=== PATIENT | female | born 1950 | race Caucasian/White ===

== ENCOUNTER 2020-10-11 17:12 | Emergency (ER) | payer MEDICARE, OTHER ==
[2020-10-11 19:10] LABS: BASOPHIL 0.6 % (0-2); EOSINOPHIL 1.4 % (0-7); HCT 41.2 % (37.0-47.0); HGB 13.2 g/dl (12.5-16.0); LYMPHOCYTE 18.1 % (15-48); MCH 28.6 pg (25.0-31.0); MCV 89.2 fL (78.0-100.0); MONOCYTE 8.4 % (0-12); MPV 9.8 fL (6.0-9.5); NEUTROPHIL 70.6 % (41-80); NRBC 0; PLT 316 K/uL (150-400); RBC 4.62 M/uL (4.20-5.40); RDW 14.1 % (11.5-14.0); WBC 15.5 K/uL (4.0-10.5)
[2020-10-11 19:23] LABS: BILIRUBIN - TOTAL 0.4 mg/dL (0.2-1.0); BUN/CREAT RATIO (CALC) 29.5 RATIO; CREATININE 1.12 mg/dL (0.51-0.95); GLOBULIN (CALCULATION) 2.7 g/dL; TOTAL PROTEIN 6.7 g/dL (6.4-8.2)
== END 2020-10-12 02:08 | disposition home or self-care (01) ==
LOC: FER 17:12
PROVIDERS: Emergency Medicine
DX: R07.89 Other chest pain (principal); Z20.822 Contact with and (suspected) exposure to COVID-19; R11.2 Nausea with vomiting, unspecified; E78.5 Hyperlipidemia, unspecified; I10 Essential (primary) hypertension; E66.9 Obesity, unspecified; Z90.49 Acquired absence of other specified parts of digestive tract; E07.9 Disorder of thyroid, unspecified; F41.9 Anxiety disorder, unspecified
CPT/HCPCS: 36415; 71045; 71275; 80053; 84484; 85025; 85379; 93005; J7030; Q9967; U0002